=== PATIENT | female | born 1980 | race Hispanic/Latino ===

== ENCOUNTER 2018-04-01 19:42 | Inpatient (IN) | payer OTHER | END 2018-04-04 13:25 | disposition home or self-care (01) | LOC: LDH 19:42 → WSH 04-02 12:33 → LDH 20:00 | PROC: 10E0XZZ Delivery of Products of Conception, External Approach (ICD-10-PCS; principal; ~2018-04-01) | DX: O80 Encounter for full-term uncomplicated delivery (principal); Z37.0 Single live birth; Z3A.00 Weeks of gestation of pregnancy not specified ==